=== PATIENT | male | born 1995 | race African-American/Black ===

== ENCOUNTER 2017-12-13 18:07 | Emergency (ER) | payer OTHER | END 2017-12-13 19:59 | disposition home or self-care (01) | LOC: M ED 18:07 | DX: S09.90XA Unspecified injury of head, initial encounter (principal); W22.8XXA Striking against or struck by other objects, initial encounter; Y92.9 Unspecified place or not applicable; Y93.89 Activity, other specified; Y99.1 Military activity; F17.200 Nicotine dependence, unspecified, uncomplicated | CPT/HCPCS: 99283 ==